=== PATIENT | male | born 1945 | race Two or more races ===

== ENCOUNTER 2021-01-17 06:55 | Outpatient (CLI) | payer MEDICARE | END 2021-01-17 23:59 | disposition home or self-care (01) | LOC: LAB 06:55 | PROVIDERS: ATTEND Specialist | DX: Z01.812 Encounter for preprocedural laboratory examination (principal); Z20.822 Contact with and (suspected) exposure to COVID-19 | CPT/HCPCS: C9803; U0003 ==

== ENCOUNTER 2021-01-21 05:42 | Day surgery (SDC) | payer MEDICARE, OTHER ==
[~2021-01-21 05:42] MED LIST: ANESTHESIA TRAY IN PYXIS 1 EA TRAY MC ONE
[2021-01-21] MEDS ORDERED: FENTANYL PF 250MCG/5ML AMPUL ONE (06:02)
[2021-01-21] MEDS ORDERED: MIDAZOLAM HCL 2 MG/2ML VIAL ONE (06:03)
[2021-01-21] MEDS ORDERED: FAMOTIDINE/PF INJ 20 MG/2 ML VIAL IV ONE (06:03)
[2021-01-21] MEDS ORDERED: methylPREDNISolone ACETATE 80 MG/ML VIAL ONE (06:31)
[2021-01-21] MEDS ORDERED: POLYMYXIN B SULFATE 0 UNITS ONE (06:31)
[2021-01-21] MEDS ORDERED: BUPIVACAINE 0.5 % PF 150 MG/30 ML VIAL ONE (06:31)
[2021-01-21 06:38] VITALS: BP 147/85
--- NOTE | 2021-01-21 07:45 | NUR ---
MS RN OPENING NOTES PATIENT IN DS RECEIVED REPORT FROM NURSE ESQUIVEL
--- NOTE | 2021-01-21 08:45 | NUR ---
MS RN NOTES PATIENT BACK FROM OR. MEDICALLY STABLE, VS WNL. WILL CONTINUE TO MONITOR.
[2021-01-21] MEDS ORDERED: MORPHINE SULFATE INJ 2 MG/ML DISP.SYRIN IV PRN (09:30)
[2021-01-21] MEDS ORDERED: ENOXAPARIN SODIUM 40 MG/0.4 ML DISP.SYRIN SQ SCH (09:30)
[2021-01-21] MEDS ORDERED: ZOLPIDEM TARTRATE 5 MG TABLET PO PRN (09:30)
[2021-01-21] MEDS ORDERED: Z GUARD REMEDY 2 OZ OINT TP PRN (09:30)
[2021-01-21] MEDS ORDERED: MAGNESIUM HYDROXIDE 30 ML UDC PO PRN (09:30)
[2021-01-21] MEDS ORDERED: ACETAMINOPHEN 325 MG TABLET PO PRN (09:30)
[2021-01-21] MEDS ORDERED: HYDROCODONE/APAP 5/325MG TABLET PO PRN (09:30)
[2021-01-21] MEDS ORDERED: ONDANSETRON HCL/PF 4 MG/2 ML VIAL IVP PRN (09:30)
[2021-01-21] MEDS ORDERED: MAG HYDROX/AL HYDROX/SIMETH 30 ML UDC PO PRN (09:30)
[2021-01-21] MEDS ORDERED: PANTOPRAZOLE 40 MG TABLET.DR PO SCH (09:30)
--- NOTE | 2021-01-21 14:07 | NUR ---
MS DIRECTOR SAFETY NOTES PATIENT DISCHARGED HOME IN MEDICALLY STABLE CONDITION. PATIENT A/O X4 ABLE TO MAKE NEEDS KNOWN. ALL DISCHARGE PAPERWORK READY; TEACHING PROVIDED AND PATIENT VERBALIZED UNDERSTANDING. PAPERS SIGNED. BELONGINGS ACCOUNTED FOR AND PAPERS SIGNED WELL. IV ACCESS REMOVED PRIOR TO LEAVING THE UNIT AND WRISTBAND REMOVED WELL. PATIENT LEFT THE FLOOR VIA WHEELCHAIR ACCOMPANIED BY RANCH MANAGER AND FRIEND. LEFT THE HOSPITAL IN A PRIVATE CAR.
== END 2021-01-21 14:00 | disposition home or self-care (01) ==
LOC: DS 05:42 → UNDOADMIN 05:44 → MED 05:44 → UNDODISIN 13:50 → DS 14:00
PROVIDERS: ATTEND Specialist
PROC: 0SBD4ZZ Excision of Left Knee Joint, Percutaneous Endoscopic Approach (ICD-10-PCS; principal; 2021-01-21)
DX: S83.232A Complex tear of medial meniscus, current injury, left knee, initial encounter (principal); G62.9 Polyneuropathy, unspecified; M17.12 Unilateral primary osteoarthritis, left knee; I10 Essential (primary) hypertension; X58.XXXA Exposure to other specified factors, initial encounter; Y93.89 Activity, other specified; Y92.89 Other specified places as the place of occurrence of the external cause; Y99.8 Other external cause status; M94.262 Chondromalacia, left knee; E78.00 Pure hypercholesterolemia, unspecified; K21.9 Gastro-esophageal reflux disease without esophagitis; E66.3 Overweight
CPT/HCPCS: 29881; A4217; A6253; J0690; J1040; J2250; J2405; J2704; J2765; J3010; J3490 ×2; J7030; G0378